=== PATIENT | female | born 2000 | race Caucasian/White ===

== ENCOUNTER 2021-11-12 12:59 | Emergency (ER) | payer SELFPAY ==
[~2021-11-12] VITALS: Ht 160 cm; Wt 61.2 kg
[2021-11-12] MEDS: ONDANSETRON ODT 4 MG TAB.RAPDIS SL ONE (13:39)
[2021-11-12] MEDS: ACETAMINOPHEN ES 500 MG TABLET PO ONE (13:39)
--- NOTE | 2021-11-12 13:39 | NUR ---
PT EVALUATED BY DR CLIFTON. MEDICACTED FOR PAIN AND NAUSEA PER MD ORDER. TO RADIOLOGY FOR CT SCAN. HARD COLLAR APPLIED PER MD ORDER.
[2021-11-12] MEDS ORDERED: ACETAMINOPHEN ES 500 MG TABLET ONE (13:40)
[2021-11-12] MEDS ORDERED: ONDANSETRON ODT 4 MG TAB.RAPDIS ONE (13:41)
[2021-11-12 13:58] LABS: *URINE HCG, QUAL NEG (NEGATIVE)
--- NOTE | 2021-11-12 14:37 | NUR ---
Patient discharged to home in stable condition. Written and verbal after care instructions given. Patient verbalizes understanding of instructions. Stressed follow up or return to ER for worsening s/s.
[2021-11-12 14:38] VITALS: BP 110/68
== END 2021-11-12 14:38 | disposition home or self-care (01) ==
LOC: ER 12:59
DX: S16.1XXA Strain of muscle, fascia and tendon at neck level, initial encounter (principal); S29.012A Strain of muscle and tendon of back wall of thorax, initial encounter; S09.90XA Unspecified injury of head, initial encounter; V47.5XXA Car driver injured in collision with fixed or stationary object in traffic accident, initial encounter; Y93.89 Activity, other specified; Y92.410 Unspecified street and highway as the place of occurrence of the external cause; Y99.8 Other external cause status
CPT/HCPCS: 70450; 72125; 84703; A4663; A9150; Q0162

== ENCOUNTER 2021-11-20 13:40 | Emergency (ER) | payer SELFPAY ==
[~2021-11-20] VITALS: Ht 160 cm; Wt 61.2 kg
--- NOTE | 2021-11-20 14:05 | NUR ---
Provider evaluated pt. Orders placed. Pt refusing test. Tech notified. Pt taken down for scan via gurney by tech, pt in stable condition.
--- NOTE | 2021-11-20 14:07 | NUR ---
Pt brought back to exam room from [facility]. Pt told tech, refusing CT. Provider aware and back at bedside to discuss with pt.
--- NOTE | 2021-11-20 14:13 | NUR ---
Provider spoke with pt about D/C recommendations. Pt D/C, left without D/C papers.
[2021-11-20 15:01] VITALS: BP 125/57
== END 2021-11-20 14:15 | disposition home or self-care (01) ==
LOC: ER 13:40
DX: G44.309 Post-traumatic headache, unspecified, not intractable (principal); F07.81 Postconcussional syndrome; F43.10 Post-traumatic stress disorder, unspecified
CPT/HCPCS: A4663